=== PATIENT | male | born 1970 | race Caucasian/White ===

== ENCOUNTER 2019-07-17 18:47 | Emergency (ER) | payer OTHER ==
[~2019-07-17] VITALS: Ht 195.6 cm; Wt 93.0 kg
[~2019-07-17 18:47] MED LIST: GLUCOSAMINE HC500 MG PO; L-ARGININE HC1000 GM PO; L-ARGININE1000 MG PO; MOBIC15 MG PO; MOBIC7.5 MG PO; SYNOVACIN500 MG PO; VIIBRYD20 MG PO
[2019-07-17] MEDS ORDERED: [UNRECOGNIZED DRUG - OTHER] (19:25)
[2019-07-17 19:49] LABS: ABSOLUTE NEUTROPHILS 2.4 thou/uL (1.4-8.2); BASOPHILS 0.7 % (0.0-2.0); EOSINOPHILS 2.7 % (0.0-3.0); HEMATOCRIT 43.3 % (42.0-52.0); HEMOGLOBIN 14.7 gm/dL (14.0-18.0); LYMPHOCYTES 37.1 % (24.0-44.0); MCH 31.4 pg (26.0-34.0); MCHC 33.8 g/dL (28.0-37.0); MCV 92.8 fL (80.0-100.0); MONOCYTES 9.4 % (1.0-8.0); PLATELET COUNT 200 thou/uL (150-400); POLYS 50.1 % (36.0-66.0); RBC 4.67 mil/uL (4.50-6.00); RDW 12.9 % (10.5-14.5); WBC 4.7 thou/uL (4.0-11.0)
[2019-07-17 20:00] LABS: CALCIUM 9.4 mg/dL (8.5-10.1); CREATININE 1.3 mg/dL (0.7-1.3)
[2019-07-17] MEDS ORDERED: MOBIC7.5 MG PO (20:51)
[2019-07-17 22:10] VITALS: BP 114/80
== END 2019-07-17 22:45 | disposition home or self-care (01) ==
LOC: ER 18:47
PROVIDERS: Nurse Practitioner Family
DX: M79.662 Pain in left lower leg (principal); M54.16 Radiculopathy, lumbar region; R51 Headache; Z86.718 Personal history of other venous thrombosis and embolism